=== PATIENT | female | born 1975 | race Hispanic/Latino ===

== ENCOUNTER 2018-08-28 11:54 | Outpatient (CLI) | payer BC ==
--- NOTE | 2018-08-28 14:00 | RAD ---
RIGHT KNEE THREE VIEWS: History: Right knee pain. FINDINGS: Joint spaces are preserved. Mild osteophytosis. No acute fracture, dislocation, or fluid distention o f the suprapatellar bursa. IMPRESSION: Very mild osteoarthritic changes right knee. POS: RADHAH
== END 2018-08-28 11:55 | disposition home or self-care (01) ==
LOC: BICRAD 11:54
PROVIDERS: ATTEND Family Medicine
DX: M25.561 Pain in right knee (principal); M17.11 Unilateral primary osteoarthritis, right knee

== ENCOUNTER 2018-08-28 12:17 | Outpatient (CLI) | payer BC | END 2018-08-28 12:18 | disposition home or self-care (01) | LOC: BICMAMMO 12:17 | PROVIDERS: ATTEND Family Medicine | DX: Z12.31 Encounter for screening mammogram for malignant neoplasm of breast (principal) | CPT/HCPCS: 77063; 77067 ==

== ENCOUNTER 2019-01-24 12:17 | Outpatient (CLI) | payer BC ==
--- NOTE | 2019-01-24 13:34 | MRI ---
LEFT KNEE MRI WITHOUT IV CONTRAST: 01/24/19 HISTORY: Left knee pain, positive Brent's sign left knee. Multiplanar and multisequence MRI examination of the left knee is performed. Minimally increased join t fluid density. There is some irregular cartilage loss including the central patellar facet and troc hlear groove as well as the medial compartment. Irregular radial tear of the posterior root of the me dial meniscus with prominent intrasubstance degenerative signal and a small focal area of free edge i rregularity at the anterior horn/anterior body probably a small subsurface tear. The lateral meniscus appears unremarkable. The anterior and posterior cruciate ligaments, collateral ligament complexes, and quadriceps and patellar tendons are intact. No significant acute abnormal marrow signal. Somewhat heterogeneous prominent red marrow distribution probably related to red marrow reconversion. No acut e osteochondral defect. IMPRESSION: Irregular posterior root tear medial meniscus with a probable small subsurface free edge tear of the anterior horn and anterior body. Minimal joint fluid density. Minimal arthrosis changes with some mil d cartilage loss. Somewhat prominent red marrow distribution. POS: C
== END 2019-01-24 12:18 | disposition home or self-care (01) ==
LOC: BICMRI 12:17
PROVIDERS: ATTEND Family Medicine
DX: S83.242A Other tear of medial meniscus, current injury, left knee, initial encounter (principal); M17.12 Unilateral primary osteoarthritis, left knee

== ENCOUNTER 2020-10-30 08:57 | Outpatient (CLI) | payer BC | END 2020-10-30 08:58 | disposition home or self-care (01) | LOC: BICMAMMO 08:57 | PROVIDERS: ATTEND Family Medicine | DX: Z12.31 Encounter for screening mammogram for malignant neoplasm of breast (principal) | CPT/HCPCS: 77063; 77067 ==

== ENCOUNTER 2022-01-22 07:41 | Outpatient (CLI) | payer BC | END 2022-01-22 07:42 | disposition home or self-care (01) | LOC: BICULT 07:41 | PROVIDERS: ATTEND Family Medicine | DX: N92.1 Excessive and frequent menstruation with irregular cycle (principal); D25.9 Leiomyoma of uterus, unspecified | CPT/HCPCS: 76856; 93976 ==

== ENCOUNTER 2024-07-10 08:47 | Outpatient (CLI) | payer BC | END 2024-07-10 08:48 | disposition home or self-care (01) | LOC: BICMAMMO 08:47 | PROVIDERS: ATTEND Family Medicine | DX: Z12.31 Encounter for screening mammogram for malignant neoplasm of breast (principal) | CPT/HCPCS: 77063; 77067 ==